=== PATIENT | female | born 1965 ===

== ENCOUNTER 2019-07-09 19:25 | Emergency (ER) | payer OTHER ==
[2019-07-09] MEDS ORDERED: ACETAMINOPHEN 500 MG TAB ONE (22:12)
[2019-07-09] MEDS ORDERED: KETOROLAC 30 MG/ML INJ ONE (22:12)
--- NOTE | 2019-07-09 23:35 | ER ---
Nurse's Notes [facility] Name: Julisa Tello Age: 53 yrs Sex: Female : 1965 Arrival Date: 07/09/2019 Time: 19:28 Bed 14 Private MD: Diagnosis: Sprain of unspecified parts of left shoulder girdle Presentation: 07/09 19:46 Presenting complaint: Patient states: L Shoulder pain that radiates to the chest, back ca1 and L elbow. I went to a clinic yesterday and they said it was torn tendon but they did not do anything. Denies any injury, denies lifting any heavy object. ROM limited on L shoulder. Transition of care: patient was not received from another setting of care. Onset of symptoms was July 09, 2019. Risk Assessment: Do you want to hurt yourself or someone else? Patient reports no desire to harm self or others. Initial Sepsis Screen: Does the patient meet any 2 criteria? No. Patient's initial sepsis screen is negative. Does the patient have a suspected source of infection? No. Patient's initial sepsis screen is negative. Care prior to arrival: None. 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 - Social history:: Smoking status: Patient uses tobacco products, smokes one pack cigarettes per day. - Ebola Screening: : Patient negative for fever greater than or equal to 101.5 degrees Fahrenheit, and additional compatible Ebola Virus Disease symptoms Patient denies exposure to infectious person Patient denies travel to an Ebola-affected area in the 21 days before illness onset No symptoms or risks identified at this time. Screenin:00 Abuse screen: Denies threats or abuse. Nutritional screening: No deficits noted. jb4 Tuberculosis screening: No symptoms or risk factors identified. Fall Risk None identified. Assessment: 21:00 General: Appears in no apparent distress. uncomfortable, Behavior is calm, cooperative, jb4 appropriate for age. Pain: Complains of pain in left shoulder Pain radiates to left arm Pain currently is 10 out of 10 on a pain scale. Neuro: Level of Consciousness is awake, alert, obeys commands, Oriented to person, place, time, situation. Cardiovascular: Patient's skin is warm and dry. Respiratory: Airway is patent Respiratory effort is even, unlabored, Respiratory pattern is regular, symmetrical. GI: No signs and/or symptoms were reported involving the gastrointestinal system. : No signs and/or symptoms were reported regarding the genitourinary system. EENT: No signs and/or symptoms were reported regarding the EENT system. Derm: Skin is intact, Skin is pink, warm \T\ dry. Musculoskeletal: Circulation, motion, and sensation intact. Range of motion: limited in left shoulder. 22:00 Reassessment: Patient appears in no apparent distress at this time. Patient and/or jb4 family updated on plan of care and expected duration. Pain level reassessed. Patient is alert, oriented x 3, equal unlabored respirations, skin warm/dry/pink. 22:59 Reassessment: Patient appears in no apparent distress at this time. Patient and/or jb4 family updated on plan of care and expected duration. Pain level reassessed. Patient is alert, oriented x 3, equal unlabored respirations, skin warm/dry/pink. 23:54 Reassessment: Patient appears in no apparent distress at this time. Patient and/or jb4 family updated on plan of care and expected duration. Pain level reassessed. Patient is alert, oriented x 3, equal unlabored respirations, skin warm/dry/pink. PT verbalized understanding of d/c and follow up instructions. Ambulated out of ED with steady gait. Patient states feeling better. Vital Signs: 19:58 BP 121 / 94; Pulse 78; Resp 17 S; Temp 98.1(O); Pulse Ox 100% on R/A; Weight 63.5 kg ca1 (R); Height 5 ft. 5 in. (165.10 cm) (R); Pain 10/10; 22:15 BP 133 / 95; Pulse 77; Resp 16; Pulse Ox 99% on R/A; jb4 23:30 BP 107 / 81; Pulse 65; Resp 16; Pulse Ox 98% on R/A; jb4 19:58 Body Mass Index 23.30 (63.50 kg, 165.10 cm) ca1 ED Course: 19:28 Patient arrived in ED. ag3 19:52 Triage completed. ca1 19:58 Arm band placed on right wrist. ca1 20:45 Jan Ortiz MD is Attending Physician. tw4 20:55 Jovany Vasquez, RN is Primary Nurse. jb4 21:00 Patient has correct armband on for positive identification. Bed in low position. Call jb4 light in reach. Side rails up X 1. Pulse ox on. NIBP on. 22:49 Shoulder Left (2 View) XRAY In Process Unspecified. EDMS 23:30 No provider procedures requiring assistance completed. Patient did not have IV access jb4 during this emergency room visit. 23:34 Chintan Briggs MD is Referral Physician. tw4 Administered Medications: 22:24 Not Given (Patient Refused): TORadol 15 mg IM once jb4 22:24 Drug: Tylenol 1000 mg Route: PO; jb4 23:59 Follow up: Response: No adverse reaction; Pain is decreased jb4 Outcome: 23:30 Discharged to home ambulatory. jb4 23:30 Condition: stable 23:30 Discharge instructions given to patient, Instructed on discharge instructions, follow up and referral plans. medication usage, Demonstrated understanding of instructions, follow-up care, medications, Prescriptions given X 1. 23:35 Discharge ordered by . tw4 23:59 Patient left the ED. jb4 Signatures: Dispatcher [employer] EDMS Jovany Vasquez, RN RN jb4 Jan Ortiz MD MD tw4 Omaira Urrutia ag3 Netta Costa RN RN ca1
--- NOTE | 2019-07-09 23:36 | EDPHYS ---
Physician Documentation [facility] Name: Julisa Tello Age: 53 yrs Sex: Female : 1965 Arrival Date: 07/09/2019 Time: 19:28 Bed 14 Private MD: ED Physician Jan Ortiz HPI: 07/10 05:40 This 53 yrs old Female presents to ER via Ambulatory with complaints of Shoulder Pain. tw4 05:46 The patient or guardian complains of decreased range of motion, pain, that is acute. tw4 left shoulder. Context: The patient experiences decreased range of motion, when rotates arm, The patient reports no obvious deformity. Onset: The symptoms/episode began/occurred 4 day(s) ago. Modifying factors: the symptoms are alleviated by remaining still, The symptoms are aggravated by lifting weight, movement, rotation of arm. Associated signs and symptoms: The patient has no apparent associated signs or symptoms. Severity of symptoms: At their worst the symptoms were moderate, in the emergency department the symptoms are unchanged. The patient has experienced a previous episode. The patient has been recently seen at an urgent care, yesterday. 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 - Social history:: Smoking status: Patient uses tobacco products, smokes one pack cigarettes per day. - Ebola Screening: : Patient negative for fever greater than or equal to 101.5 degrees Fahrenheit, and additional compatible Ebola Virus Disease symptoms Patient denies exposure to infectious person Patient denies travel to an Ebola-affected area in the 21 days before illness onset No symptoms or risks identified at this time. ROS: 07/10 05:49 Constitutional: Negative for fever, chills, and weight loss, Eyes: Negative for injury, tw4 pain, redness, and discharge, ENT: Negative for injury, pain, and discharge, Cardiovascular: Negative for chest pain, palpitations, and edema, Respiratory: Negative for shortness of breath, cough, wheezing, and pleuritic chest pain, Abdomen/GI: Negative for abdominal pain, nausea, vomiting, diarrhea, and constipation, Back: Negative for injury and pain, Skin: Negative for injury, rash, and discoloration, Neuro: Negative for headache, weakness, numbness, tingling, and seizure. MS/extremity: Positive for decreased range of motion, pain, Negative for injury or acute deformity, ecchymosis, erythema, laceration. Exam: 05:49 Constitutional: This is a well developed, well nourished patient who is awake, alert, tw4 and in no acute distress. Cardiovascular: Regular rate and rhythm with a normal S1 and S2. No gallops, murmurs, or rubs. Normal PMI, no JVD. No pulse deficits. Respiratory: Lungs have equal breath sounds bilaterally, clear to auscultation and percussion. No rales, rhonchi or wheezes noted. No increased work of breathing, no retractions or nasal flaring. Abdomen/GI: Soft, non-tender, with normal bowel sounds. No distension or tympany. No guarding or rebound. No evidence of tenderness throughout. Back: No spinal tenderness. No costovertebral tenderness. Full range of motion. Neuro: Awake and alert, GCS 15, oriented to person, place, time, and situation. Cranial nerves II-XII grossly intact. Motor strength 5/5 in all extremities. Sensory grossly intact. Cerebellar exam normal. Normal gait. 05:49 Musculoskeletal/extremity: Extremities: noted in the anterior aspect of left shoulder and posterior aspect of left shoulder: decreased ROM, pain, tenderness, There is no evidence of contusion, deformity, ecchymosis, erythema, laceration, ROM: limited active range of motion due to pain, limited passive range of motion due to pain, Circulation is intact in all extremities. Sensation intact. Compartment Syndrome exam of affected extremity: is normal. Vital Signs: 07/09 19:58 BP 121 / 94; Pulse 78; Resp 17 S; Temp 98.1(O); Pulse Ox 100% on R/A; Weight 63.5 kg ca1 (R); Height 5 ft. 5 in. (165.10 cm) (R); Pain 10/10; 22:15 BP 133 / 95; Pulse 77; Resp 16; Pulse Ox 99% on R/A; jb4 23:30 BP 107 / 81; Pulse 65; Resp 16; Pulse Ox 98% on R/A; jb4 19:58 Body Mass Index 23.30 (63.50 kg, 165.10 cm) ca1 MDM: 20:45 Patient medically screened. tw4 07/10 05:49 Differential diagnosis: glenoid fracture, DJD, tendonitis. Data reviewed: vital signs, tw4 nurses notes. Test interpretation: by ED physician or midlevel provider: plain radiologic studies. Counseling: I had a detailed discussion with the patient and/or guardian regarding: the historical points, exam findings, and any diagnostic results supporting the discharge/admit diagnosis, radiology results. Medication response: Response to treatment: the patient's symptoms have mildly improved after treatment, and as a result, I will discharge patient. Special discussion: I discussed with the patient/guardian in detail that at this point there is no indication for admission to the hospital. It is understood, however, that if the symptoms persist or worsen the patient needs to return immediately for re-evaluation. Based on the history and exam findings, there is no indication for further emergent testing or inpatient evaluation. I discussed with the patient/guardian the need to see the orthopedic surgeon for further evaluation of the symptoms. 07/09 22:10 Order name: Shoulder Left (2 View) XRAY tw4 Administered Medications: 07/09 22:24 Not Given (Patient Refused): TORadol 15 mg IM once jb4 22:24 Drug: Tylenol 1000 mg Route: PO; jb4 23:59 Follow up: Response: No adverse reaction; Pain is decreased jb4 Disposition: 07/09/19 23:35 Discharged to Home. Impression: Sprain of unspecified parts of left shoulder girdle. - Condition is Stable. - Discharge Instructions: Shoulder Pain. - Prescriptions for Tramadol 50 mg Oral Tablet - take 1 tablet by ORAL route every 8 hours as needed; 12 tablet. - Medication Reconciliation Form, Thank You Letter, Antibiotic Education, Prescription Opioid Use form. - Follow up: Private Physician; When: Upon discharge from the Emergency Department; Reason: Recheck today's complaints, Continuance of care. Follow up: Chintan Briggs MD; When: Upon discharge from the Emergency Department; Reason: Recheck today's complaints, Continuance of care. - Problem is new. - Symptoms are unchanged. Signatures: Dispatcher [employer] EDJovany Johnson RN RN jb4 Jan Ortiz MD MD tw4 Netta Costa RN RN ca1 Corrections: (The following items were deleted from the chart) 23:59 23:35 07/09/2019 23:35 Discharged to Home. Impression: Sprain of unspecified parts of jb4 left shoulder girdle. Condition is Stable. Forms are Medication Reconciliation Form, Thank You Letter, Antibiotic Education, Prescription Opioid Use. Follow up: Private Physician; When: Upon discharge from the Emergency Department; Reason: Recheck today's complaints, Continuance of care. Follow up: Chintan Briggs; When: Upon discharge from the Emergency Department; Reason: Recheck today's complaints, Continuance of care. Problem is new. Symptoms are unchanged. tw4
[2019-07-10 02:59] VITALS: TEMP 98.1
[2019-07-10 03:01] VITALS: BP 107/81; O2SAT 98
--- NOTE | 2019-07-10 09:05 | RAD REPORT ---
EXAM DESCRIPTION: RAD - Shoulder Left 2 View - 07/09/2019 10:48 pm CLINICAL HISTORY: Left shoulder pain FINDINGS: No fracture or dislocation is seen. Mild osteoarthritis involves the glenohumeral and acr omioclavicular joints consisting joint space narrowing and subchondral cyst. The humeral head is high riding which may indicate a chronic rotator tear
== END 2019-07-09 23:59 | disposition home or self-care (01) ==
LOC: ER 19:25
DX: S43.92XA Sprain of unspecified parts of left shoulder girdle, initial encounter (principal); X58.XXXA Exposure to other specified factors, initial encounter; F17.210 Nicotine dependence, cigarettes, uncomplicated; Z88.8 Allergy status to other drugs, medicaments and biological substances; Z88.2 Allergy status to sulfonamides
CPT/HCPCS: 99284